=== PATIENT | female | born 1995 | race Caucasian/White ===

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

== ENCOUNTER → 2017-07-15 | Outpatient (CLI) | payer BC ==
[2017-07-17 16:15] LABS: VARICELLA ZOS VIR IGG VALUE <135.00 INDEX
== END | disposition home or self-care (01) ==
LOC: C.LABBFT 12:07
PROVIDERS: ATTEND Nurse Practitioner
DX: Z00.00 Encounter for general adult medical examination without abnormal findings (principal)